=== PATIENT | female | born 2005 | race Caucasian/White ===

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

== ENCOUNTER 2023-03-07 18:10 | Emergency (ER) | payer MEDICAID ==
[2023-03-07] MEDS ORDERED: Ondansetron 4 MG Tab.DIS PO ONE (19:29)
[2023-03-07 19:55] LABS: BILIRUBIN,URINE NEGATIVE (NEGATIVE); COLOR,URINE YELLOW; GLUCOSE,URINE NEGATIVE (NEGATIVE); KETONES,URINE NEGATIVE (NEGATIVE); LEUKOCYTE ESTERASE,URINE NEGATIVE (NEGATIVE); NITRITE,URINE NEGATIVE (NEGATIVE); OCCULT BLOOD,URINE TRACE-INTACT (NEGATIVE); PH,URINE 6.5 (5.0-8.0); PROTEIN,URINE 30 mg/dL (NEGATIVE); UROBILINOGEN,URINE 0.2 EU/dL (<2.0)
[2023-03-07 20:02] LABS: APPEARANCE,URINE HAZY
[2023-03-07 20:03] LABS: BACTERIA,URINE FEW (NEGATIVE); EPITHELIAL CELLS,URINE FEW (NONE-FEW); MUCUS,URINE HEAVY (NONE-MOD)
[2023-03-07] MEDS ORDERED: Sodium Chloride 0.9% 10 ML Syringe FLUSH PRN (20:09)
[2023-03-07] MEDS ORDERED: Sodium Chloride 0.9% 2.5 ML Syringe FLUSH PRN (20:09)
[2023-03-07 20:28] LABS: BASOPHILS PERCENT AUTO 0.3 % (0.0-1.5); EOSINOPHILS ABSOLUTE AUTO 0.1 K/uL (0.0-0.7); EOSINOPHILS PERCENT AUTO 0.6 % (0.0-7.0); HEMATOCRIT 34.6 % (36.0-46.0); HEMOGLOBIN 11.4 g/dL (12.0-16.0); LYMPHOCYTES ABSOLUTE AUTO 1.9 K/uL (0.6-2.4); LYMPHOCYTES PERCENT AUTO 17.3 % (16.0-40.0); MEAN CORPUSCULAR HEMOGLOBIN 26.5 pg (27.0-32.0); MEAN CORPUSCULAR HGB CONC 32.9 g/dL (31.0-37.0); MEAN CORPUSCULAR VOLUME 80.5 fL (80.0-98.0); MONOCYTES ABSOLUTE AUTO 0.6 K/uL (0.0-0.8); MONOCYTES PERCENT AUTO 5.8 % (0.0-15.0); NEUTROPHILS ABSOLUTE AUTO 8.3 K/uL (1.4-5.7); NRBC ABSOLUTE 0 K/uL; PLATELET COUNT,PLT 306 K/uL (150-400); WHITE BLOOD CELL COUNT,WBC 10.95 K/uL (4.0-11.0)
[2023-03-07 21:17] LABS: ALBUMIN 3.6 g/dL (3.4-5.0); BILIRUBIN TOTAL 0.4 mg/dL (0.2-1.0); CALCIUM 8.6 mg/dL (8.5-10.1); CARBON DIOXIDE,CO2 22.2 mmol/L (21.0-32.0); CREATININE 0.5 mg/dL (0.6-1.0); EST CRCL DRUG DOSING (CG) 176.56 mL/min; POTASSIUM,K 3.7 mmol/L (3.5-5.1); PROTEIN TOTAL,TP 7.3 g/dL (6.4-8.2)
[2023-03-07 21:51] VITALS: BP 113/59; PULSE 80
== END 2023-03-07 21:49 | disposition home or self-care (01) ==
LOC: MW.ED 18:10
DX: O21.9 Vomiting of pregnancy, unspecified (principal); O99.891 Other specified diseases and conditions complicating pregnancy; R82.71 Bacteriuria
CPT/HCPCS: 36415; 76801; 80053; 81001; 81025; 83690; 84702; 85025; 86900; 86901; 99284; A9270; 99283

== ENCOUNTER 2023-09-29 14:36 | Inpatient (IN) | payer MEDICAID ==
[2023-09-29] MEDS: Lactated Ringers 1,000 ML IV SCH (15:33)
[2023-09-29] MEDS: Ondansetron 4 MG/2 ML SDV IVPUSH ONE (16:18)
[2023-09-29] MEDS ORDERED: Sodium Chloride 0.9% 2.5 ML Syringe FLUSH PRN (21:06)
[2023-09-29] MEDS ORDERED: Tranexamic Acid IN NACL,ISO-OS 1,000 MG in Premix Bag 1 BAG IV PRN (21:06)
[2023-09-29] MEDS ORDERED: Sodium Chloride 0.9% 20 ML SDV IV PRN (21:06)
[2023-09-29] MEDS ORDERED: Water For Irrigation,Sterile 1,000 ML Container IRR PRN (21:06)
[2023-09-29] MEDS ORDERED: Methylergonovine 0.2 MG/1 ML Amp IM PRN (21:06)
[2023-09-29] MEDS ORDERED: Misoprostol 200 MCG Tab PO PRN (21:06)
[2023-09-29] MEDS ORDERED: Butorphanol 2 MG/ML SDV IVPUSH PRN (21:06)
[2023-09-29] MEDS ORDERED: Sodium Chloride 0.9% 10 ML Syringe FLUSH PRN (21:06)
[2023-09-29] MEDS ORDERED: Lidocaine 1% 50 ML MDV INJECT PRN (21:06)
[2023-09-29] MEDS ORDERED: Carboprost Tromethamine 250 MCG/1 mL Vial IM PRN (21:06)
[2023-09-29] MEDS ORDERED: Oxytocin/0.9 % Sodium Chloride 30 UNIT/500 ML BAG IV SCH (21:15)
[2023-09-29] MEDS ORDERED: Lactated Ringers 1,000 ML IV SCH (21:15)
[2023-09-29] MEDS: Ondansetron 4 MG/2 ML SDV IVPUSH PRN (21:30)
[2023-09-29 23:26] LABS: HEMATOCRIT 28.5 % (37.0-47.0); HEMOGLOBIN 9.3 g/dL (12.0-16.0); MEAN CORPUSCULAR HEMOGLOBIN 24.5 pg (28.0-32.0); MEAN CORPUSCULAR HGB CONC 32.6 g/dL (32.0-36.0); MEAN PLATELET VOLUME 9.9 fL (9.4-12.3); PLATELET COUNT,PLT 254 K/uL (150-400); WHITE BLOOD CELL COUNT,WBC 10.94 K/uL (3.9-11.3)
[2023-09-30] MEDS ORDERED: EPINEPHrine 1 MG/1 ML Amp ONE (01:05)
[2023-09-30] MEDS ORDERED: Ropivacaine 0.5% 5 MG/ML 30 ML SDV ONE (01:05)
[2023-09-30] MEDS ORDERED: Bupivacaine 0.25% 30 ML SDV ONE (01:05)
[2023-09-30] MEDS ORDERED: Morphine PF 10 MG/10 ML SDV ONE (01:05)
[2023-09-30] MEDS ORDERED: Phenylephrine 1% 10 MG/ML SDV ONE (01:05)
[2023-09-30] MEDS ORDERED: Oxytocin 10 Units/1 ML SDV ONE (01:05)
[2023-09-30] MEDS ORDERED: Ketorolac 30 MG/ML SDV ONE (01:05)
[2023-09-30] MEDS ORDERED: fentaNYL 100 MCG/2 ML SDV ONE (01:05)
[2023-09-30] MEDS ORDERED: Ondansetron 4 MG/2 ML SDV ONE (01:05)
[2023-09-30] MEDS ORDERED: ceFAZolin 1 GM Vial ONE (01:05)
[2023-09-30] MEDS ORDERED: Acetaminophen/oxyCODONE 325-5 MG Tab PO PRN (03:09)
[2023-09-30] MEDS ORDERED: HYDROmorphone 1 MG/ML Syringe IVPUSH PRN (03:09)
[2023-09-30] MEDS ORDERED: Naloxone 0.4 MG/ML SDV IVPUSH PRN (03:09)
[2023-09-30] MEDS ORDERED: ePHEDrine 50 MG/ML SDV IVPUSH PRN (03:09)
[2023-09-30] MEDS ORDERED: Albuterol 0.083% 2.5 MG/3 ML Neb Soln NEB PRN (03:09)
[2023-09-30] MEDS ORDERED: droPERidol 5 MG/2 ML SDV IVPUSH PRN (03:09)
[2023-09-30] MEDS ORDERED: Morphine 2 MG/ML SYRINGE IVPUSH PRN (03:09)
[2023-09-30] MEDS ORDERED: Ondansetron 4 MG/2 ML SDV IVPUSH PRN ×3 (03:09→08:18)
[2023-09-30] MEDS ORDERED: fentaNYL 50 MCG/ML SDV IVPUSH PRN (03:09)
[2023-09-30] MEDS ORDERED: fentaNYL 100 MCG/2 ML SDV IVPUSH PRN (03:09)
[2023-09-30] MEDS ORDERED: Metoclopramide 10 MG/2 ML SDV IVPUSH PRN (03:09)
[2023-09-30] MEDS: Acetaminophen 1,000 MG in Premix Bag 1 BAG IV SCH (04:08)
[2023-09-30] MEDS: diphenhydrAMINE 50 MG/ML SDV IVPUSH PRN (05:55)
[2023-09-30] MEDS ORDERED: Methylergonovine 0.2 MG/1 ML Amp IM PRN (08:18)
[2023-09-30] MEDS ORDERED: Lanolin 100% Cream 7 GM Tube TOP PRN (08:18)
[2023-09-30] MEDS ORDERED: Oxytocin 10 Units/1 ML SDV IM PRN (08:18)
[2023-09-30] MEDS ORDERED: diphenhydrAMINE 50 MG/ML SDV IVPUSH PRN (08:18)
[2023-09-30] MEDS ORDERED: Misoprostol 200 MCG Tab RECTAL PRN (08:18)
[2023-09-30] MEDS ORDERED: Bisacodyl 10 MG Supp RECTAL PRN (08:18)
[2023-09-30] MEDS ORDERED: Oxytocin/0.9 % Sodium Chloride 30 UNIT/500 ML BAG IV SCH (08:30)
[2023-09-30] MEDS: Ketorolac 30 MG/ML SDV IVPUSH SCH (08:30)
[2023-09-30] MEDS ORDERED: Lactated Ringers 1,000 ML IV SCH (08:30)
[2023-09-30] MEDS: Docusate Sodium 100 MG Cap PO SCH (11:01)
[2023-09-30] MEDS: Acetaminophen 325 MG Tab PO SCH (21:28)
[2023-10-01] MEDS: Acetaminophen 325 MG Tab PO SCH (02:08)
[2023-10-01 06:04] LABS: HEMATOCRIT 24.1 % (37.0-47.0); HEMOGLOBIN 7.9 g/dL (12.0-16.0)
[2023-10-01] MEDS: Sodium Ferric Gluconate Cmplex 125 MG in Sodium Chloride 0.9% 100 ML IV ONE (10:56)
[2023-10-01] MEDS: Ibuprofen 800 MG Tab PO PRN (18:30)
[2023-10-02 10:41] LABS: HEMATOCRIT 26.5 % (37.0-47.0); HEMOGLOBIN 8.4 g/dL (12.0-16.0)
[2023-10-02 21:34] VITALS: BP 122/69; PULSE 75
== END 2023-10-02 20:30 | disposition home or self-care (01) | DRG 788 ==
LOC: MW.OBCHECK 14:36 → MW.OB 14:38 → MW.OBCHECK 18:30 → OBSVTOIN 09-30 02:04 → MW.OB 09-30 03:15
PROVIDERS: ADMIT Obstetrics & Gynecology; ATTEND Obstetrics & Gynecology
PROC: 10D00Z1 Extraction of Products of Conception, Low, Open Approach (ICD-10-PCS; principal; 2023-09-30 01:45)
DX: O32.8XX0 Maternal care for other malpresentation of fetus, not applicable or unspecified (principal); Z3A.37 37 weeks gestation of pregnancy; Z37.0 Single live birth; O99.02 Anemia complicating childbirth
CPT/HCPCS: 01961; 36415; 64488; 76815; 76815-26; 85014; 85018; 85027; 86592; 86850; 86900; 86901; A9270-GY; J0131; J0171; J0665; J0690; J1100; J1200; J1885; J2274; J2371; J2405; J2590; J2795; J2916; J3010; J3490; J7120

== ENCOUNTER 2023-10-15 10:45 | Emergency (ER) | payer SELFPAY ==
[2023-10-15 11:35] LABS: BASOPHILS ABSOLUTE AUTO 0.04 K/uL (0.00-0.20); BASOPHILS PERCENT AUTO 0.5 % (0.0-1.0); EOSINOPHILS ABSOLUTE AUTO 0.19 K/uL (0.00-0.45); EOSINOPHILS PERCENT AUTO 2.6 % (0.0-6.0); HEMATOCRIT 37.6 % (37.0-47.0); IMMATURE GRAN ABSOLUTE AUTO 0.03 K/uL (0.00-0.05); IMMATURE GRAN PERCENT AUTO 0.4 % (0.0-0.4); LYMPHOCYTES ABSOLUTE AUTO 1.57 K/uL (1.00-4.80); LYMPHOCYTES PERCENT AUTO 21.2 % (24.0-44.0); MEAN CORPUSCULAR HEMOGLOBIN 24.6 pg (28.0-32.0); MEAN CORPUSCULAR HGB CONC 31.9 g/dL (32.0-36.0); MEAN PLATELET VOLUME 9.7 fL (9.4-12.3); MONOCYTES ABSOLUTE AUTO 0.32 K/uL (0.00-0.80); MONOCYTES PERCENT AUTO 4.3 % (0.0-8.0); NEUTROPHILS ABSOLUTE AUTO 5.27 K/uL (1.80-7.70); PLATELET COUNT,PLT 433 K/uL (150-400); RED BLOOD CELL COUNT 4.88 M/uL (4.10-5.30); WHITE BLOOD CELL COUNT,WBC 7.42 K/uL (3.9-11.3)
[2023-10-15 11:50] LABS: INR 1.03 (0.86-1.11)
[2023-10-15 11:52] LABS: A/G RATIO 0.7 (0.9-1.6); ALBUMIN 3.4 g/dL (3.4-5.0); BILIRUBIN TOTAL 0.3 mg/dL (0.2-1.0); CALCIUM 9.3 mg/dL (8.5-10.1); CARBON DIOXIDE,CO2 23.6 mmol/L (21.0-32.0); CREATININE 0.7 mg/dL (0.6-1.0); EST CRCL DRUG DOSING (CG) 129.32 mL/min; POTASSIUM,K 4.2 mmol/L (3.5-5.1); PROTEIN TOTAL,TP 8.1 g/dL (6.4-8.2)
[2023-10-15] MEDS: Sodium Chloride 0.9% 1,000 ML IV STA (13:21)
[2023-10-15] MEDS: Tranexamic Acid 1,000 MG in Sodium Chloride 0.9% 100 ML IV ONE (13:54)
[2023-10-15 14:16] VITALS: BP 96/56; PULSE 75
== END 2023-10-15 14:15 | disposition home or self-care (01) ==
LOC: MW.ED 10:45
DX: O72.1 Other immediate postpartum hemorrhage (principal); Z91.018 Allergy to other foods; Z75.8 Other problems related to medical facilities and other health care
CPT/HCPCS: 36415; 76830; 80053; 85025; 85610; 86850; 86900; 86901; 96361; 96365; 99284; J3490; J7030; 99282

== ENCOUNTER 2024-02-12 22:57 | Emergency (ER) | payer MEDICAID ==
[2024-02-12] MEDS: Ketorolac 30 MG/ML SDV IM ONE (23:46)
[2024-02-13 00:01] LABS: APPEARANCE,URINE SLT CLOUDY; BILIRUBIN,URINE NEGATIVE (NEGATIVE); COLOR,URINE YELLOW; GLUCOSE,URINE NEGATIVE (NEGATIVE); KETONES,URINE NEGATIVE (NEGATIVE); LEUKOCYTE ESTERASE,URINE NEGATIVE (NEGATIVE); NITRITE,URINE NEGATIVE (NEGATIVE); OCCULT BLOOD,URINE LARGE (NEGATIVE); PROTEIN,URINE TRACE mg/dL (NEGATIVE); UROBILINOGEN,URINE 0.2 EU/dL (<2.0)
[2024-02-13 00:19] LABS: BACTERIA,URINE FEW (NEGATIVE); EPITHELIAL CELLS,URINE FEW (NONE-FEW); MUCUS,URINE HEAVY (NONE-MOD); RBC,URINE 20-30 (0-2/HPF)
[2024-02-13 01:07] VITALS: BP 101/57; PULSE 61
== END 2024-02-13 01:06 | disposition home or self-care (01) ==
LOC: MW.ED 22:57
DX: M54.6 Pain in thoracic spine (principal); Z75.8 Other problems related to medical facilities and other health care; Z91.018 Allergy to other foods
CPT/HCPCS: 72128; 72131; 81001; 81025; 96372; 99284; J1885; 99283